=== PATIENT | male | born 1980 | race Caucasian/White ===

== ENCOUNTER 2019-02-26 12:16 | Emergency (ER) | payer MEDICAID ==
[~2019-02-26] VITALS: Ht 175.3 cm; Wt 75.0 kg
[2019-02-26 12:19] VITALS: BP 114/56
[2019-02-26] MEDS ORDERED: IBUPROFEN 600MG TABLET PO ONE (13:15)
[2019-02-26] MEDS ORDERED: ALBUTEROL (0.083%) 2.5MG/3ML NEB HHN ONE (13:15)
== END 2019-02-26 15:21 | disposition home or self-care (01) ==
LOC: ER 12:24
DX: J40 Bronchitis, not specified as acute or chronic (principal); I10 Essential (primary) hypertension
CPT/HCPCS: 71045; 94640; 99283; J7610